=== PATIENT | male | born 1940 | race Caucasian/White ===

== ENCOUNTER 2019-04-02 08:11 | Day surgery (SDC) | payer MEDICARE ==
[~2019-04-02 08:11] MED LIST: ACETAMINOPHEN 1,000 MG/100 ML BTL IVPB ONE; CEFAZOLIN 2 Gram 2 GM/50 ML BAG IVPB ONE
[2019-04-02] MEDS ORDERED: LIDOCAINE 2% MDV (20MG/ML) 20ML VIAL IV ONE (08:12)
[2019-04-02] MEDS ORDERED: MIDAZOLAM HCL 2MG/2ML VIAL IV ONE (08:12)
[2019-04-02] MEDS ORDERED: PROPOFOL 10 MG/ML VIAL IV ONE (08:12)
[2019-04-02] MEDS ORDERED: RINGERS SOLUTION,LACTATED 1,000 ML IV ONE (08:53)
[2019-04-02] MEDS ORDERED: BUPIVACAINE 0.5% W/EPI MPF 30 ML VIAL SQ ONE (10:28)
--- NOTE | 2019-04-04 10:31 | Operative Note ---
DATE OF SURGERY: 04/02/2019 PREOPERATIVE DIAGNOSIS: Recurrent lipoma of right arm. POSTOPERATIVE DIAGNOSIS: Recurrent lipoma of right arm. OPERATION: Excision of soft tissue lipoma of right arm. STAFF SURGEON: Jax Newberry MD ANESTHESIA: Local with sedation, monitored anesthesia care. PREPARATION: Chloraprep. INDIVIDUAL CONSIDERATIONS: None. PROCEDURE: The patient was taken to the operating room and placed supine on the operating room table. He was then placed in a semi-seated beach chair position and his right arm and shoulder were prepped and draped in the usual fashion. The patient had a previous incision which was used over the arm basically just distal to the deltoid laterally and extended about 4 cm. The skin was infiltrated with 0.5% Marcaine with epinephrine prior. Sharp dissection carried down just through the skin. Once in the subcutaneous tissue, there was obviously a huge lipoma. This was dissected out basically over the top of the fat. It was a large tumor laying on top of the muscle basically fairly well encapsulated but sometimes adherent to the skin. This was removed in toto. It measured at removal 13 x 10 x 3 cm. Small veins were coagulated with a Bovie. After irrigation, the subcu was closed with 3-0 plus Vicryl, skin was closed with bertha. A sterile bulky compressive dressing was applied. The patient tolerated procedure well. Needle and sponge counts were correct. Estimated blood loss was minimal. The patient was taken back to recovery in good condition. There were no complications. [facility]
== END 2019-04-02 11:47 | disposition home or self-care (01) ==
LOC: SUR 08:11
PROVIDERS: ATTEND Orthopaedic Surgery
DX: D17.21 Benign lipomatous neoplasm of skin and subcutaneous tissue of right arm (principal); I10 Essential (primary) hypertension
CPT/HCPCS: 11406; 00400; J0690; J7120